=== PATIENT | female | born 2005 | race Caucasian/White ===

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

== ENCOUNTER 2023-01-07 21:49 | Emergency (ER) | payer OTHER, SELFPAY ==
[2023-01-07 21:50] VITALS: BP 130/77; PULSE 108; RESP 20; TEMP 36.8; O2SAT 99
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
[2023-01-07] MEDS: KETOROLAC (*BKC) 60 MG/2 ML VIAL IM (22:10)
[2023-01-07] MEDS: methocarbamoL 500 MG TABLET 1000 MG PO (22:10)
[2023-01-07] MEDS: ACETAMINOPHEN 500 MG TABLET 1000 MG PO (22:10)
[2023-01-07 22:31] VITALS: BP 130/77; PULSE 100; RESP 20; TEMP 36.8; O2SAT 99
== END 2023-01-07 22:33 | disposition home or self-care (01) ==
PROVIDERS: Emergency Provider Emergency Medicine; PCP Nurse Practitioner Family
DX: S00.83XA Contusion of other part of head, initial encounter (principal); S80.11XA Contusion of right lower leg, initial encounter; S80.212A Abrasion, left knee, initial encounter; V47.6XXA Car passenger injured in collision with fixed or stationary object in traffic accident, initial encounter
CPT/HCPCS: 96372; 99283; A9270; J1885

== ENCOUNTER 2023-07-08 11:43 | Outpatient (CLI) | payer OTHER, SELFPAY ==
[2023-07-08 13:11] LABS: Alanine Aminotransferase 15 U/L (14-59); Albumin Level 4.5 g/dL (3.4-5.0); Alkaline Phosphatase 77 U/L (50-130); Anion Gap 12 mmol/L (8-16); Bilirubin,Total 0.3 mg/dL (0.00-1.00); Blood Urea Nitrogen 13 mg/dL (7-18); Calcium 9.3 mg/dL (8.5-10.1); Carbon Dioxide 25 mmol/L (21-32); Chloride 104 mmol/L (98-108); Estimated Glomerular Filt Rate > 60; Free T4 Free Thyroxine 0.81 ng/dL (0.76-1.46); Glucose 88 mg/dL (70-99); Osmolality Calculated 291 mOsm/kg (285-295); Potassium 3.8 mmol/L (3.5-5.1); Sodium 141 mmol/L (136-145); Thyroid Stimulating Hormone 2.19 uIU/mL (0.52-4.13); Total Protein 7.8 g/dL (6.4-8.2); Vitamin B12 521 pg/mL (193-986)
[2023-07-08 13:16] LABS: HIV 1 P24 AG Negative (Negative); HIV 1/2 AB Negative (Negative)
[2023-07-08 13:23] LABS: Aspartate Amino Transferase 16 U/L (15-37)
[2023-07-08 13:36] LABS: Beta HCG Quantitative < 1.00 mIU/mL (0-6)
[2023-07-09 07:56] LABS: Trichomonas Vag PCR NOT DETECTED (NOT DETECTE)
[2023-07-10 15:35] LABS: Vitamin D 25 Hydroxy 39 ng/mL (30-100)
[2023-07-10 16:00] LABS: RPR Screen Non-Reactive (Non-Reactive)
[2023-07-12 04:11] LABS: Hepatitis C Virus Antibody Nonreactive
== END 2023-07-08 11:44 | disposition home or self-care (01) ==
LOC: CHSLAB 11:45
PROVIDERS: PCP Nurse Practitioner Family; Visit Provider Nurse Practitioner Family
DX: F41.9 Anxiety disorder, unspecified (principal); Z20.2 Contact with and (suspected) exposure to infections with a predominantly sexual mode of transmission; Z79.899 Other long term (current) drug therapy; Z78.9 Other specified health status; A74.9 Chlamydial infection, unspecified
CPT/HCPCS: 36415; 80053; 82306; 82607; 83735; 84439; 84443; 84702; 86592; 86695; 86696; 86803; 87661; 87806

== ENCOUNTER 2023-09-25 04:58 | Emergency (ER) | payer OTHER, SELFPAY ==
[2023-09-25 05:04] VITALS: BP 120/83; PULSE 84; RESP 18; TEMP 36.2; O2SAT 99
--- NOTE | 2023-09-25 05:16 | PC.NURSE ---
Addendum entered by Olga Reece RN 09/25/23 05:16: urine taken to lab Original Note: patient reports that she took zofran prior to coming in
--- NOTE | 2023-09-25 05:21 | ED.NAVMDI ---
HPI - Nausea/Vomiting/Diarrhea General Chief complaint: Nausea/Vomiting/Diarrhea Stated complaint: vomiting Time Seen by Provider: 09/25/23 05:13 Source: patient Mode of arrival: ambulatory Limitations: no limitations History of Present Illness HPI Narrative: this is a 18-year-old female that woke up this morning with some headache and took ibuprofen for her headache and went back to sleep and woke up again with episode of nausea and vomiting with no abdominal pain no fever chills no diarrhea constipation. Boyfriend is with her and their concern is that she may be otherwise no dysuria no hematuria no chest pain or shortness of breath. MD elicited complaint: nausea and vomiting Onset (ago): hour(s) Description of vomiting: watery Associated nausea: Yes Associated abdominal pain: No Location of pain: none Related Data Allergies Allergy/AdvReac Type Severity Reaction Status Date / Time escitalopram [From Lexapro] Allergy Severe rash Verified 08/26/23 10:42 Sulfa (Sulfonamide Allergy Rash Verified 08/26/23 10:42 Antibiotics) Review of Systems Review of Systems: All systems reviewed & are unremarkable except as noted in HPI and below PMFSH Past Medical History Medical History Depression Encounter for screening for depression Exposure to COVID-19 virus Major depression Uses control Surgical History Surgical History No pertinent past surgical history Social History Social History Smoking status: Never smoker Alcohol intake: never Substance use: current Substance use type: marijuana Lack of Transportation: YES Lack of Food: Sometimes True Current Housing: I Have Housing Concerned About Future Housing: YES Difficulty Paying Gas/Electric Bills: YES Difficulty Paying for Meds: YES Currently Unemployed: YES Education: Decline to Answer Difficulty w/ Childcare or Family Care: No Living arrangements: with family Occupation/Education: student Exam Const: General: cooperative, healthy appearing, comfortable, no acute distress and well developed HENMT: Head: normal to inspection and No palpable skull fracture present Mouth: Yes Normal oral and palatal mucosa present Eyes: General: appearance normal, both eyes and all related structures Neck: Neck: normal visual inspection, full ROM, no lymphadenopathy and no meningeal signs Resp: Effort & Inspection: normal respiratory effort and able to speak in complete sentences Cardio: Jugular venous distension: no JVD Palpation: normal PMI Rate: regular rate GI: Inspection: normal to inspection Auscultation: normal bowel sounds Back/Spine/Pelvis: Back: no CVA tenderness Skin: General skin exam: normal color and no rashes or lesions noted Course Course Emergency Course: 4Mg Zofran IM administered and improve symptoms, and urine test performed Vital Signs Vital signs: Vital Signs Temperature 36.2 C L 09/25/23 05:04 Pulse Rate 84 09/25/23 05:04 Respiratory Rate 18 09/25/23 05:04 Blood Pressure 120/83 09/25/23 05:04 Pulse Oximetry 99 09/25/23 05:04 Temperature 36.2 C L 09/25/23 05:04 Pulse Rate 84 09/25/23 05:04 Respiratory Rate 18 09/25/23 05:04 Blood Pressure 120/83 09/25/23 05:04 Pulse Oximetry 99 09/25/23 05:04 Critical Care Time Critical Care Time Critical Care Time: No Discharge Plan Discharge Clinical Impression: Nausea & vomiting Qualifiers: Vomiting type: unspecified Qualified Code(s): R11.2 - Nausea with vomiting, unspecified Patient Disposition: Home, Self-Care Condition: Stable Instructions: Antibiotic Form, Acute Nausea and Vomiting (ED), Clear Liquid Diet (ED) Additional Instructions: advised take medicine as prescribed and follow-up with primary as scheduled. Prescriptions: New ondansetron 4 mg tablet,disinte
[2023-09-25] MEDS: ONDANSETRON INJ 4 MG/2 ML VIAL IM (05:25)
--- NOTE | 2023-09-25 05:30 | PC.NURSE ---
patient was educated to not keep tampon in for 12 hours at a time. educated about toxic shock syndrome
[2023-09-25 05:36] LABS: Pregnancy On Board Control Positive; Urine Pregnancy Test Negative
== END 2023-09-25 05:44 | disposition home or self-care (01) ==
PROVIDERS: Emergency Provider Emergency Medicine; PCP Nurse Practitioner Family
DX: R11.2 Nausea with vomiting, unspecified (principal)
CPT/HCPCS: 81025; 96372; 99283; J2405

== ENCOUNTER 2023-09-28 12:29 | Outpatient (CLI) | payer OTHER, SELFPAY ==
[2023-09-28 13:17] LABS: Beta HCG Quantitative < 1.00 mIU/mL (0-6)
== END 2023-09-28 12:30 | disposition home or self-care (01) ==
LOC: CHSLAB 12:31
PROVIDERS: PCP Nurse Practitioner Family; Visit Provider Nurse Practitioner Family
DX: Z71.1 Person with feared health complaint in whom no diagnosis is made (principal)
CPT/HCPCS: 36415; 84702

== ENCOUNTER 2023-11-11 13:59 | Outpatient (CLI) | payer MEDICAID, SELFPAY ==
[2023-11-11 15:01] LABS: Beta HCG Quantitative < 1.00 mIU/mL (0-6)
== END 2023-11-11 14:00 | disposition home or self-care (01) ==
PROVIDERS: PCP Nurse Practitioner Family; Visit Provider Nurse Practitioner Family
DX: Z71.1 Person with feared health complaint in whom no diagnosis is made (principal)
CPT/HCPCS: 36415; 84702

== ENCOUNTER 2024-10-13 11:08 | Outpatient (NON) | payer BC, SELFPAY ==
--- NOTE | 2024-10-13 | CY_PTH ---
PATIENT: Connie Magaña LOC: [facility] U#:[id number] AGE/SX: 19/F ROOM: RE10/13/[address]: Jennifer Medina NP : 2005 BED: DIS: 10/13/2024 SPEC #: [id number] RECD: 10/13/24 11:25 STATUS: BONIFACIO REEverardo #: [id number] AVE: 10/13/24 00:[address]: Jennifer Medina DEPT: [facility] Cytology RECD BY: Jaimie Horton MLT, (ASCP) Tissues: A - Pap Smear Procedures: Pap Smear
[2024-10-13 11:30] LABS: Add Urine Microscopic? NO; Appearance Urine Clear (Clear); Bilirubin Urine Negative (Negative); Blood Urine Negative (Negative); Color Urine Yellow (Yellow); Glucose Urine UA Negative (Negative); Ketones Urine Negative (Negative); Leukocyte Esterase Ur Negative LEU/UL (Negative); Nitrate Urine Negative (Negative); Protein Urine Negative (Negative); Specific Grav Ur 1.025 (1.010-1.020); pH Urine 5.5 (5.0-8.0)
[2024-10-14 07:58] LABS: Trichomonas Vag PCR NOT DETECTED (NOT DETECTE)
== END 2024-10-13 11:09 | disposition home or self-care (01) ==
LOC: CHSLAB 11:10
PROVIDERS: PCP Nurse Practitioner Family; Visit Provider Nurse Practitioner Family
DX: N89.8 Other specified noninflammatory disorders of vagina (principal); Z87.898 Personal history of other specified conditions
CPT/HCPCS: 81003; 87070; 87491; 87591; 87661; 88175; G0145